=== PATIENT | female | born 1955 | race Caucasian/White ===

== ENCOUNTER → 2017-12-26 | Outpatient (CLI) | payer BC ==
[~2017-12-26] MED LIST: CHOL200038 PO; CHOL200074 PO; HYDR-2966 PO; LISI-355 PO; LISI-362 PO; MILK175C PO
[2017-12-26 07:43] LABS: PLATELET COUNT, AUTOMATED 299 K/uL (150-450)
[2017-12-26 07:52] LABS: LDL CHOLESTEROL 107 mg/dl
== END ==
LOC: LAB 07:22
PROVIDERS: ATTEND Emergency Medicine
DX: Z00.00 Encounter for general adult medical examination without abnormal findings (principal); I10 Essential (primary) hypertension
CPT/HCPCS: 36415; 82040; 82247; 82310; 82374; 82435; 82465; 82565; 82947; 83036; 83718; 84075; 84132; 84155; 84295; 84450; 84460; 84478; 84520; 85025

== ENCOUNTER → 2017-12-31 | Outpatient (CLI) | payer BC | LOC: LAB 09:29 | PROVIDERS: ATTEND Emergency Medicine | DX: G62.9 Polyneuropathy, unspecified (principal) | CPT/HCPCS: 36415; 82607; 82746; 83090; 83921; 84443 ==

== ENCOUNTER → 2018-02-05 | Outpatient (CLI) | payer BC ==
--- NOTE | 2018-02-05 11:18 | RADIOLOGY IMAGING REPORT ---
FACILITY: [facility] PATIENT NAME: MIGNON SCHUSTER : [id number] MR: [id number] V: [id number] EXAM DATE: ORDERING PHYSICIAN: SABAS FIERRO TECHNOLOGIST: Jazmin Kim PROCEDURE:BILATERAL DIGITAL SCREENING MAMMOGRAM WITH CAD ASSISTED INTERPRETATION & 3D TOMOSYNTHESIS COMPARISON:Prior mammograms 03/21/16, 11/03/14. INDICATIONS:screening FINDINGS: Moderately dense fibroglandular tissue is seen throughout the breasts. The parenchymal pattern has remained stable allowing for difference in mammographic technique & patient positioning. There is no evidence of malignant appearing mass, malignant appearing calcifications or other secondary sign of malignancy in either breast. DIAGNOSTIC CATEGORY 1--NEGATIVE. RECOMMENDATIONS: ROUTINE MAMMOGRAM AND CLINICAL EVALUATION. IMPRESSION: BIRADS 1: Negative. No significant abnormality is seen. Dictated by: Melina Amor M.D. on 02/05/2018 at 9:17 Transcribed by: ROGER on 02/05/2018 at 9:58 Approved by: Melina Amor M.D. on 02/05/2018 at 11:17 [facility]
== END ==
LOC: MAMO 02:14
PROVIDERS: ATTEND Emergency Medicine
DX: Z12.31 Encounter for screening mammogram for malignant neoplasm of breast (principal); Z80.3 Family history of malignant neoplasm of breast
CPT/HCPCS: 77063; 77067

== ENCOUNTER → 2018-12-11 | Outpatient (CLI) | payer OTHER ==
[~2018-12-11] MED LIST changes: +GADOBENATE 529MG/1ML 15ML VIAL IVP ONE; -MILK175C PO; +MILK175C2 PO; +MULT1CAP59 PO; +OMEG-36 PO; +OMEG200L PO
--- NOTE | 2018-12-11 12:03 | RADIOLOGY IMAGING REPORT ---
FACILITY: [facility] PATIENT NAME: Lucy Guidry : 1955 MR: [id number] V: [id number] EXAM DATE: ORDERING PHYSICIAN: SABAS FIERRO TECHNOLOGIST: Location: [facility] Patient: Lucy Guidry : 1955 Visit/Account:[id number] Date of Sevice: 12/11/2018 EXAMINATION: MRI Brain without intravenous contrast MRI Brain with intravenous contrast, detailed IACs HISTORY: Tinnitus. Dizziness. COMPARISON: None available. TECHNIQUE: Multi-planar, multi-sequence brain MRI was performed before and after IV gadolinium. Thin section imaging was performed in the axial and coronal planes centered on the IACs. CONTRAST: 15 mL of IV MultiHance FINDINGS: IAC: Brain stem: Negative. Cerebellopontine angles: Negative. IACs / CN VII and VIII: Negative. Inner ear: Negative. Middle ear: Negative. Mastoids / petrous apices: Negative. BRAIN: Brain volume: Normal. Sagittal midline structures: Negative. Ventricles: Negative. Acute ischemic changes: None. Hemorrhage: None. Masses / edema: None. Enhancement: Negative. Yusuf-white: Negative. White matter: A few T2/FLAIR hyperintensities in the deep white matter bilaterally. Vessels: Small developmental venous anomaly in the right frontoparietal region. Otherwise negative. Extra-axial: Negative. Calvarium / scalp: Negative. Skull base: Negative. Visualized sinuses / orbits: Leftward nasal septal deviation. Visualized upper neck: Negative. IMPRESSION: 1. Normal IAC protocol MRI without and with IV contrast. 2. No acute intracranial abnormality or mass. 3. Mild chronic white matter disease, nonspecific but most likely representing chronic microvascular ischemia. 4. Small developmental venous anomaly in the right frontoparietal region. 5. Leftward nasal septal deviation. Report Dictated By: Shankar Ward MD at 12/11/2018 11:51 AM Report E-Signed By: Shankar Ward MD at 12/11/2018 11:59 AM WSN:[email or web address]
--- NOTE | 2018-12-11 12:04 | RADIOLOGY IMAGING REPORT ---
FACILITY: [facility] [place] PATIENT NAME: Lucy Guidry : 1955 MR: [id number] V: [id number] EXAM DATE: ORDERING PHYSICIAN: SABAS FIERRO TECHNOLOGIST: Location: [facility] Patient: Lucy Guidry : 1955 Visit/Account:[id number] Date of Sevice: 12/11/2018 EXAMINATION: MRI Brain without intravenous contrast MRI Brain with intravenous contrast, detailed IACs HISTORY: Tinnitus. Dizziness. COMPARISON: None available. TECHNIQUE: Multi-planar, multi-sequence brain MRI was performed before and after IV gadolinium. Thin section imaging was performed in the axial and coronal planes centered on the IACs. CONTRAST: 15 mL of IV MultiHance FINDINGS: IAC: Brain stem: Negative. Cerebellopontine angles: Negative. IACs / CN VII and VIII: Negative. Inner ear: Negative. Middle ear: Negative. Mastoids / petrous apices: Negative. BRAIN: Brain volume: Normal. Sagittal midline structures: Negative. Ventricles: Negative. Acute ischemic changes: None. Hemorrhage: None. Masses / edema: None. Enhancement: Negative. Yusuf-white: Negative. White matter: A few T2/FLAIR hyperintensities in the deep white matter bilaterally. Vessels: Small developmental venous anomaly in the right frontoparietal region. Otherwise negative. Extra-axial: Negative. Calvarium / scalp: Negative. Skull base: Negative. Visualized sinuses / orbits: Leftward nasal septal deviation. Visualized upper neck: Negative. IMPRESSION: 1. Normal IAC protocol MRI without and with IV contrast. 2. No acute intracranial abnormality or mass. 3. Mild chronic white matter disease, nonspecific but most likely representing chronic microvascular ischemia. 4. Small developmental venous anomaly in the right frontoparietal region. 5. Leftward nasal septal deviation. Report Dictated By: Shankar Ward MD at 12/11/2018 11:51 AM Report E-Signed By: Shankar Ward MD at 12/11/2018 11:59 AM WSN:[email or web address]
== END ==
LOC: MRI 00:55
PROVIDERS: ATTEND Emergency Medicine
DX: H93.19 Tinnitus, unspecified ear (principal); J34.2 Deviated nasal septum; I67.82 Cerebral ischemia
CPT/HCPCS: 70553; A9577

== ENCOUNTER 2018-12-17 01:06 | Day surgery (SDC) | payer OTHER ==
[~2018-12-17] VITALS: Ht 172.7 cm; Wt 70.3 kg
[~2018-12-17 01:06] MED LIST changes: -GADOBENATE 529MG/1ML 15ML VIAL IVP ONE
[2018-12-17] MEDS ORDERED: LIDOCAINE/SOD BICARB 8.4% SYR ID ONE (06:30)
[2018-12-17] MEDS ORDERED: NORMOSOL R SOLN(*) 1000 ML BAG 1,000 ML IV PRN (06:30)
[2018-12-17 07:32] VITALS: BP 146/92
[2018-12-17 09:16] VITALS: BP 112/79
--- NOTE | 2018-12-17 09:26 | Short(Outpt) Discharge Summary ---
Discharge Summary Reason for Hosp/Final Diag: (1) Colon cancer screening Status: Chronic Hospital Course & Plan: Colonoscopy with polypectomy x1 completed without problems. Departure Discharge to: Home, Self Care Discharge Instructions Home Meds Active Scripts Lisinopril/Hydrochlorothiazide (LISINOPRIL-HCTZ 20-25 MG TAB) 1 Each Tablet, 1 EACH PO DAILY, #90 TAB 3 Refills Prov:SABAS FIERRO MD 01/23/18 Reported Medications [place] 3/Dha/Epa/Other Om3/D3 (OMEGA-3 + VITAMIN D3 LIQUID) 200 Ml Liquid, 200 ML PO QDAY 12/08/18 Multivitamin (MULTIVITAMINS) 1 Each Capsule, 1 EACH PO DAILY, CAPSULE 09/16/18 Milk Thistle Seed Extract (MILK THISTLE) Unknown Strength Capsule, 1 CAP PO DAILY, CAPSULE 12/11/16 Diet: Regular Activity: As Tolerated Special Instructions: Your colonoscopy was completed without problems and your prep was excellent (Good Job!!). I removed a tiny polyp from your colon and it was sent to pathology. My office will call you in the week or two to let you know what the polyp is and when your next colonoscopy should be (either 5 or 10 years) depending on the pathology results. TERRY ESQUEDA MD Dec 17, 2018 09:26
[2018-12-17 09:30] VITALS: BP 123/83
[2018-12-17] MEDS ORDERED: LIDOCAINE MPF 1% 5 ML VIAL ONE (09:55)
[2018-12-17] MEDS ORDERED: PROPOFOL EMUL(*) 10MG/ML 20 ML 40 ML ONE (09:55)
[2018-12-17 10:01] VITALS: BP 141/96
[2018-12-17 10:02] VITALS: BP 135/86
== END 2018-12-17 10:18 | disposition home or self-care (01) ==
LOC: OR 01:06
PROVIDERS: ATTEND Surgery
DX: Z12.11 Encounter for screening for malignant neoplasm of colon (principal); D12.2 Benign neoplasm of ascending colon
CPT/HCPCS: 00811; 45385; 88305; J2001; J2704

== ENCOUNTER → 2018-12-29 | Outpatient (CLI) | payer OTHER | LOC: AUD 08:50 | PROVIDERS: ATTEND Emergency Medicine | DX: H93.19 Tinnitus, unspecified ear (principal) | CPT/HCPCS: 92557; 92570 ==

== ENCOUNTER → 2019-01-20 | Outpatient (CLI) | payer OTHER ==
[2019-01-20 08:56] LABS: PLATELET COUNT, AUTOMATED 266 K/uL (150-450)
[2019-01-20 10:18] LABS: LDL CHOLESTEROL 136 mg/dl
== END ==
LOC: LAB 08:19
PROVIDERS: ATTEND Emergency Medicine
DX: Z00.00 Encounter for general adult medical examination without abnormal findings (principal); I10 Essential (primary) hypertension
CPT/HCPCS: 36415; 82040; 82247; 82310; 82374; 82435; 82465; 82565; 82947; 83036; 83718; 84075; 84132; 84155; 84295; 84443; 84450; 84460; 84478; 84520; 85025